=== PATIENT | male | born 1975 ===

== ENCOUNTER 2017-12-31 06:40 | Emergency (ER) | payer OTHER ==
--- NOTE | 2017-12-31 07:32 | C.PDOC ---
History Of Present Illness 42 y/o male presents to ED with c/o worsening rectal pain for 4 days associated with intermittent LLQ abdominal pain. Patient states he had bowel movement this morning and "stool was hard". Patient denies fever, chills, nausea, vomiting or any other complaints at this time. Time Seen by Provider: 12/31/17 07:00 Chief Complaint (Nursing): GI Problem History Per: Patient History/Exam Limitations: no limitations Onset/Duration Of Symptoms: Days Current Symptoms Are (Timing): Still Present Past Medical History Reviewed: Historical Data, Nursing Documentation, Vital Signs Vital Signs: Last Vital Signs Temp 98.0 F 12/31/17 13:00 Pulse 84 12/31/17 13:00 Resp 20 12/31/17 13:00 BP 130/86 12/31/17 13:00 Pulse Ox 98 12/31/17 18:41 - Medical History PMH: No Chronic Diseases Surgical History: No Surg Hx Family History: States: No Known Family Hx - Social History Hx Alcohol Use: Yes Hx Substance Use: No - Immunization History Hx Tetanus Toxoid Vaccination: No Hx Influenza Vaccination: No Hx Pneumococcal Vaccination: No Review Of Systems Constitutional: Negative for: Fever, Chills Gastrointestinal: Positive for: Abdominal Pain. Negative for: Nausea, Vomiting , Diarrhea, Hematochezia Skin: Negative for: Rash Physical Exam - Physical Exam Appears: Non-toxic, No Acute Distress Skin: Warm, Dry, No Rash Head: Atraumatic, Normacephalic Eye(s): bilateral: Normal Inspection Oral Mucosa: Moist Cardiovascular: Rhythm Regular Respiratory: Normal Breath Sounds, No Rales, No Rhonchi, No Wheezing Gastrointestinal/Abdominal: Bowel Sounds, Soft, Tenderness (LLQ), No Guarding, No Rebound Rectal: Mass (2cm erythematous and fluctuant mass at 12oclock position ) Extremity: Normal ROM, Capillary Refill (<2 seconds) Neurological/Psych: Oriented x3, Normal Speech, Normal Cognition ED Course And Treatment - Laboratory Results Result Diagrams: 12/31/17 07:47 12/31/17 07:47 O2 Sat by Pulse Oximetry: 98 (RA) Pulse Ox Interpretation: Normal Medical Decision Making Medical Decision Makin pt seen by surgery resident; recommends ab/pelvis ct to eval llq pain and perirectal abscess 1206 ct neg for acute ab pathology. surgery resident did i and d of perrirectal abscess at bedside. recommend augmentin x 1 week, f/u with Dr Swain on for packing removal and sitz baths. prior to being discharged, pt was pale, diaphoretic when standing. pt was placed back into bed, given ivf, food and something to drink and Tylenol. pt felt much better after and discharged with no difficulty Disposition Counseled Patient/Family Regarding: Studies Performed, Diagnosis, Need For Followup, Rx Given - Disposition Referrals: Douglas Swain MD [Staff Provider] - Disposition: HOME/ ROUTINE Disposition Time: 12:08 Condition: IMPROVED Additional Instructions: Por favor, tome antibiticos hasta que se complete. Ina los analgsicos segn lo recetado si es necesario. Realice baos de asiento varias veces al da. Erinn un seguimiento en la oficina del Dr. Swain el niya para retirar el embalaje de roper absceso. Regrese a la jairo de emergencias por fiebre. peor dolor o cualquier otra preocupacin. Annel medications tejada sido enviados a [facility] Please take antibiotics until completed. Take pain medications as prescribed if needed. Do sitz baths several times a day. Follow up in Dr Sawin's office on for removal of packing from your abcess. Return to ER for fever. worse pain or any other concerns. Your medications has been sent to [facility] Prescriptions: Amoxicillin/Clavulanate [Augmentin 875 MG-125 MG] 1 tab PO BID #14 tab Ibuprofen [Motrin] 600 mg PO TID #30 tab Instructions: Abscess Incision and Drainage (DC), Anal Abscess and Fistula (DC) , How to Do a Sitz Bath Forms: Gen Discharge Inst Guatemalan, [place] (Guatemalan) Print Language: LATVIAN - Clinical Impression Clinical Impression: Perirectal abscess - PA / [employer]ATOR / Resident Statement / has reviewed & agrees with the documentation as recorded. - Scribe Statement The provider has reviewed the documentation as recorded by the Amandaibluigi Lorenz All medical record entries made by the Scribe were at my direction and personally dictated by me. I have reviewed the chart and agree that the record accurately reflects my personal performance of the history, physical exam, medical decision making, and the department course for this patient. I have also personally directed, reviewed, and agree with the discharge instructions and disposition.
[2017-12-31 07:54] LABS: BASO % 0.3 % (0.0-2.0); EOS # 0.1 K/uL (0.0-0.7); EOS % 0.8 % (0.0-4.0); HEMOGLOBIN 13.6 g/dL (12.0-18.0); LYMPH # 2.1 K/uL (1.0-4.3); LYMPH % 16.5 % (20.0-40.0); MEAN CELL VOLUME 85.3 fL (80.0-94.0); MONO # 1.3 K/uL (0.0-0.8); MONO % 9.7 % (0.0-10.0); NEUT # 9.4 K/uL (1.8-7.0); NEUT % 72.7 % (50.0-75.0); RBC 4.68 Mil/uL (4.40-5.90); RED CELL DISTRIBUTION WIDTH 13.7 % (11.5-14.5); WHITE BLOOD COUNT 12.9 K/uL (4.8-10.8)
[2017-12-31 08:09] LABS: ALB/GLOB RATIO 1.1 (1.0-2.1); ALBUMIN 3.8 g/dL (3.5-5.0); ALT/SGPT 34 U/L (21-72); AST/SGOT 22 U/L (17-59); BLOOD UREA NITROGEN 15 mg/dL (9-20); CALCIUM 8.8 mg/dl (8.6-10.4); GFR NON-AFRICAN AMERICAN > 60
[2017-12-31] MEDS ORDERED: Iohexol 240 (50 ml) PO STA (08:25)
[2017-12-31] MEDS ORDERED: Iohexol 240 (50 ml) ONE (08:33)
[2017-12-31] MEDS ORDERED: Iodixanol 320 MG/ML 100 ML BOTTLE IV ONE (10:10)
--- NOTE | 2017-12-31 10:49 | CT ---
PROCEDURE: CT Abdomen and Pelvis with oral and IV contrast. HISTORY: llq pain perirectal abscess at 12oclock COMPARISON: None available TECHNIQUE: Contiguous axial images of the abdomen and pelvis. Oral and IV contrast was administered. Coronal and Sagittal reformats generated. Contrast dose: 100 mL Visipaque IV Radiation dose: Total exam DLP = 745.66 mGy-cm. This CT exam was performed using one or more of the following dose reduction techniques: Automated exposure control, adjustment of the mA and/or kV according to patient size, and/or use of iterative reconstruction technique. FINDINGS: LOWER THORAX: No visible consolidation, pleural effusion, or pneumothorax. LIVER: Unremarkable. GALLBLADDER AND BILE DUCTS: Unremarkable. PANCREAS: Unremarkable. SPLEEN: Unremarkable. ADRENALS: Unremarkable. KIDNEYS AND URETERS: The kidneys enhance symmetrically. No hydronephrosis or obstructing renal calculus. BLADDER: The urinary bladder appears unremarkable. REPRODUCTIVE: Unremarkable. APPENDIX: The appendix appears within normal limits of caliber. No secondary signs of acute appendicitis. BOWEL: The stomach is nondistended. The bowel loops appear within normal limits of caliber without evidence of intestinal obstruction. PERITONEUM: No significant free fluid. No definite free air. LYMPH NODES: No bulky lymphadenopathy identified. VASCULATURE: No aortic aneurysm. BONES: No acute osseous abnormality is detected. OTHER FINDINGS: 2.3 x 1.4 cm low-density within the upper midline perirectal soft tissues consistent with abscess. Correlate clinically. IMPRESSION: 2.3 x 1.4 cm low-density within the upper midline perirectal soft tissues consistent with abscess. Correlate clinically.
[2017-12-31] MEDS ORDERED: Lidocaine 1% Inj (20ml) INFIL ONE (11:07)
[2017-12-31] MEDS ORDERED: Lidocaine 2% MPF (5 ml) Inj ONE (11:27)
[2017-12-31 13:00] VITALS: BP 130/86; PULSE 84; RESP 20; TEMP 98
--- NOTE | 2017-12-31 17:16 | CP.PCM.CON ---
History of Present Illness - History of Present Illness History of Present Illness: Surgery: Dr. Swain CC: Rectal pain HPI: 42M w. no significant pmh presents to ED with rectal pain x 4 days. Pt has never had this pain before. The pain is constant. Pain is worse with BM. No blood. No F/C. No N/V/D. Pt also has complaints of LLQ abdominal pain. Pain not related to diet. PMH: none PSH: none Meds: none NKDA SocialHx: No tobacco/drugs, social ETOH Fhx: Non-contributory Review of Systems - Review of Systems All systems: reviewed and no additional remarkable complaints except (HPI) Past Patient History - Infectious Disease Hx of Infectious Diseases: None - Past Social History Smoking Status: Never Smoked - PSYCHIATRIC Hx Substance Use: No - SURGICAL HISTORY Hx Surgeries: No - ANESTHESIA Hx Anesthesia: No Meds Home Medications: Home Medication List Medication Instructions Recorded Confirmed Type Amoxicillin/Clavulanate [Augmentin 1 tab PO BID #14 tab 12/31/17 Rx 875 MG-125 MG] Ibuprofen [Motrin] 600 mg PO TID #30 tab 12/31/17 Rx Allergies/Adverse Reactions: Allergies Allergy/AdvReac Type Severity Reaction Status Date / Time No Known Allergies Allergy Unverified 12/31/17 06:45 Physical Exam - Constitutional Appears: Non-toxic, No Acute Distress - Head Exam Head Exam: ATRAUMATIC, NORMOCEPHALIC - Eye Exam Eye Exam: EOMI - ENT Exam ENT Exam: Mucous Membranes Moist - Neck Exam Neck exam: Positive for: Full Rom - Respiratory Exam Respiratory Exam: NORMAL BREATHING PATTERN. absent: Accessory Muscle Use, Respiratory Distress - GI/Abdominal Exam GI & Abdominal Exam: Soft, Tenderness (LLQ). absent: Distended, Firm, Guarding , Rigid - Rectal Exam Additional comments: Normal rectal tone, no masses, fluctuant rose marie-rectal abscess 6 o'clock, tender to palpation - Extremities Exam Extremities exam: Negative for: calf tenderness, pedal edema - Neurological Exam Neurological exam: Alert, Oriented x3 - Psychiatric Exam Psychiatric exam: Normal Affect, Normal Mood - Skin Skin Exam: Dry, Normal Color, Warm Results - Vital Signs Recent Vital Signs: Last Vital Signs Temp 98.0 F 12/31/17 13:00 Pulse 84 12/31/17 13:00 Resp 20 12/31/17 13:00 BP 130/86 08/24/18 13:00 Pulse Ox 96 12/31/17 13:00 - Labs Result Diagrams: 12/31/17 07:47 12/31/17 07:47 Labs: Laboratory Results - last 24 hr 12/31/17 12/31/17 12/31/17 07:47 07:47 07:47 WBC 12.9 H RBC 4.68 Hgb 13.6 Hct 39.9 MCV 85.3 MCH 29.0 MCHC 34.0 RDW 13.7 Plt Count 235 MPV 8.0 Neut % (Auto) 72.7 Lymph % (Auto) 16.5 L Howell % (Auto) 9.7 Eos % (Auto) 0.8 Baso % (Auto) 0.3 Neut # (Auto) 9.4 H Lymph # (Auto) 2.1 Howell # (Auto) 1.3 H Eos # (Auto) 0.1 Baso # (Auto) 0.0 Sodium 142 Potassium 3.8 Chloride 107 Carbon Dioxide 25 Anion Gap 14 BUN 15 Creatinine 0.4 L Est GFR ( Amer) > 60 Est GFR (Non-Af Amer) > 60 Random Glucose 127 H Calcium 8.8 Total Bilirubin 0.4 AST 22 ALT 34 Alkaline Phosphatase 96 Total Protein 7.2 Albumin 3.8 Globulin 3.4 Albumin/Globulin Ratio 1.1 Stool Occult Blood Negative - Imaging and Cardiology CT scan - abdomen Status: Image reviewed by me, Report reviewed by me Assessment & Plan - Assessment and Plan (Free Text) Assessment: 42M w. perirectal abscess -Abscess I&D at bedside, packing placed -Clear for D/C -F/U w. Dr. Swain this Wednesday -Sitz baths TID -Augmentin x 1 week -d/w attending Zemaitis PGY4
--- NOTE | 2017-12-31 17:24 | PCM.SURG1 ---
Surgeon's Initial Post Op Note - Surgeon's Notes Surgeon: Wiliam Manager Stone: Kristy PGY4 Pre-Operative Diagnosis: Terrie-rectal abscess Operative Findings: 10cc pus Post-Operative Diagnosis: same Operation Performed: I&D Specimen/Specimens Removed: none Estimated Blood Loss: EBL {In ML}: 5 Blood Products Given: N/A Drains Used: No Drains Post-Op Condition: Good Date of Surgery/Procedure: 12/31/17 Time of Surgery/Procedure: 17:24
[2017-12-31 18:42] VITALS: O2SAT 98
== END 2017-12-31 13:06 | disposition home or self-care (01) ==
LOC: C.ER 06:40 → SUPCPDRO 06:40 → C.ER 13:06
DX: K61.1 Rectal abscess (principal)
CPT/HCPCS: 46040; 74177; 80053; 85025; 99285; G0328; Q9966; Q9967